=== PATIENT | female | born 1985 | race Caucasian/White ===

== ENCOUNTER 2025-01-04 14:56 | Emergency (ER) | payer SELFPAY ==
[2025-01-04] MEDS: diphenhydrAMINE 50 MG/ML SDV IVPUSH STA (15:23)
[2025-01-04] MEDS: Dexamethasone 4 MG/ML SDV IVPUSH STA (15:23)
[2025-01-04] MEDS: Ondansetron 4 MG/2 ML SDV IVPUSH ONE (15:32)
[2025-01-04] MEDS ORDERED: Naloxone 0.4 MG/ML SDV IVPUSH PRN (15:49)
[2025-01-04] MEDS: LORazepam 2 MG/ML SDV IVPUSH STA (16:00)
[2025-01-04] MEDS: Acetaminophen/oxyCODONE 325-5 MG Tab PO STA (17:34)
[2025-01-04] MEDS: Propofol 200 MG/20 ML SDV IVPUSH STA (17:40)
[2025-01-04] MEDS: EPINEPHrine 1 MG/ML SDV IM ONE (21:28)
== END 2025-01-04 18:10 | disposition home or self-care (01) ==
LOC: JD.ED 14:56
DX: M25.552 Pain in left hip (principal); Z88.6 Allergy status to analgesic agent; X50.1XXA Overexertion from prolonged static or awkward postures, initial encounter
CPT/HCPCS: 72131; 72192; 73501; 96374; 96375; 99284; A9270; J0169; J1100; J1171; J1200; J2060; J2405; J7030